=== PATIENT | female | born 1955 | race Two or more races ===

== ENCOUNTER 2018-05-27 06:54 | Day surgery (SDC) | payer OTHER ==
[2018-05-27] MEDS ORDERED: LIDOCAINE 2% (SDV) 5 ML INJ (07:00)
[2018-05-27] MEDS ORDERED: PROPOFOL 200 MG INJ (07:00)
[2018-05-27] MEDS ORDERED: PROPOFOL 40 ML (08:55)
== END 2018-05-27 11:23 | disposition home or self-care (01) ==
LOC: GIL 06:54
DX: R19.4 Change in bowel habit (principal); K29.30 Chronic superficial gastritis without bleeding; D12.5 Benign neoplasm of sigmoid colon; K64.8 Other hemorrhoids; K21.9 Gastro-esophageal reflux disease without esophagitis; E11.9 Type 2 diabetes mellitus without complications; I10 Essential (primary) hypertension; E03.9 Hypothyroidism, unspecified; E66.01 Morbid (severe) obesity due to excess calories; Z68.37 Body mass index [BMI] 37.0-37.9, adult
CPT/HCPCS: 43239; 82962; 88305; 88312